=== PATIENT | female | born 1980 | race Caucasian/White ===

== ENCOUNTER 2016-08-11 19:42 | Emergency (ER) | payer BC, OTHER ==
[2016-08-11 19:48] VITALS: BP 155/95; PULSE 96; TEMP 98.5; BMI 25.0
--- NOTE | 2016-08-11 19:50 | PDOC ---
History of Present Illness - General History Source: Patient Exam Limitations: No Limitations - History of Present Illness Initial Comments: 08/11/16 21:31 The patient is a 36-year-old female with a significant past medical history of Hashimotos disease and goiter (not on medications), and presents to the emergency department with blurry vision and head numbness and tingling today. The patient reports that the onset of the numbness and tingling was sudden, is localized to the left side of the head and face, and radiates down the arm. She reports lightheadedness, weakness, and anxiety. She states she has had a headache intermittently for months. She reports a recent tooth infection on the right side accompanied by intermittent pain in the region. She reports she was cleaning earlier today. The patient denies chest pain and shortness of breath. She denies any changes in eating or loss of appetite. The patient denies fever, chills, nausea, vomit, diarrhea and constipation. The patient denies dysuria, frequency, urgency and hematuria. Allergies: seasonal allergies, shellfish Past Surgical History: Breast augmentation Social History: Denies tobacco, ETOH, or drug use. <Joy Barclay - Last Filed: 08/11/16 21:30> <Allyssa Pendleton - Last Filed: 08/12/16 03:54> - General Chief Complaint: Head/Neck problem Stated Complaint: ANXIETY Time Seen by Provider: 08/11/16 19:50 Past History <Joy Barclay - Last Filed: 08/11/16 21:30> - Past Medical History Asthma: No Cancer: No Cardiac Disorders: No Diabetes: No HTN: No Seizures: No Thyroid Disease: No Other medical history: hashimotos - Psycho/Social/Smoking Cessation Hx Suicidal Ideation: No Smoking History: Never smoked Have you smoked in the past 12 months: No Information on smoking cessation initiated: No Hx Alcohol Use: No Drug/Substance Use Hx: No Substance Use Type: None Hx Substance Use Treatment: No <Allyssa Pendleton - Last Filed: 08/12/16 03:54> - Past Medical History Allergies/Adverse Reactions: Allergies Allergy/AdvReac Type Severity Reaction Status Date / Time Shellfish Allergy Unknown Verified 08/11/16 19:46 Home Medications: Ambulatory Orders Norethindrone-E.estradiol-Iron [Microgestin Fe 1-20 Tablet] 1 each PO DAILY tablet 01/06/14 Amoxicillin - [Amoxicillin 500mg Capsule -] 500 mg PO TID #21 capsule 08/11/16 Lorazepam [Ativan] 0.5 mg PO TID #15 tablet MDD 3 08/11/16 Review of Systems - Review of Systems Able to Perform ROS?: Yes Comments:: 08/11/16 21:31 CONSTITUTIONAL: Present: (+) generalized weakness Absent: fever, chills, diaphoresis, malaise, loss of appetite HEENT: Present: (+) blurry vision, (+) tooth pain Absent: rhinorrhea, nasal congestion, throat pain, throat swelling, difficulty swallowing, mouth swelling, ear pain, eye pain CARDIOVASCULAR: Absent: chest pain, syncope, palpitations, irregular heart rate, peripheral edema RESPIRATORY: Absent: cough, shortness of breath, dyspnea with exertion, orthopnea, wheezing, stridor, hemoptysis GASTROINTESTINAL: Absent: abdominal pain, abdominal distension, nausea, vomiting, diarrhea, constipation, melena, hematochezia GENITOURINARY: Absent: dysuria, frequency, urgency, hesitancy, hematuria, flank pain, genital pain MUSCULOSKELETAL: Absent: myalgia, arthralgia, joint swelling SKIN: Absent: rash, itching, pallor HEMATOLOGIC/IMMUNOLOGIC: Absent: easy bleeding, easy bruising, lymphadenopathy, frequent infections ENDOCRINE: Absent: unexplained weight gain, unexplained weight loss, heat intolerance, cold intolerance NEUROLOGIC: Present: (+) paresthesia in the left head, face, and arm, (+) lightheadedness, ( +) headache Absent: unsteady gait, seizure, mental status changes, bladder or bowel incontinence PSYCHIATRIC: Absent: depression, suicidal or homicidal ideation, hallucinations. <Joy Barclay - Last Filed: 08/11/16 21:30> *Physical Exam - Vital Signs Last Vital Signs Temp Pulse Resp BP Pulse Ox 98.5 F 96 H 18 155/95 99 08/11/16 19:47 08/11/16 19:47 08/11/16 19:47 08/11/16 19:47 08/11/16 19:47 - Physical Exam Comments: 08/11/16 21:31 GENERAL: Well developed, well nourished. Awake and alert. No acute distress. (+) Afebrile. HEENT: Normocephalic, atraumatic. PERRLA, EOMI. No conjunctival pallor. Sclera are non- icteric. Moist mucous membranes. Oropharynx is clear. NECK: Supple. Full ROM. No JVD. Carotid pulses 2+ and symmetric, without bruits. No thyromegaly. No lymphadenopathy. CARDIOVASCULAR: Regular rate and rhythm. No murmurs, rubs, or gallops. Distal pulses are 2+ and symmetric. PULMONARY: No evidence of respiratory distress. Lungs clear to auscultation bilaterally. No wheezing, rales or rhonchi. ABDOMINAL: Soft. Non-tender. Non-distended. No rebound or guarding. No organomegaly. Normoactive bowel sounds. MUSCULOSKELETAL Normal range of motion at all joints. No bony deformities or tenderness. No CVA tenderness. EXTREMITIES: No cyanosis. No clubbing. No edema. No calf tenderness. SKIN: Warm and dry. Normal capillary refill. No rashes. No jaundice. NEUROLOGICAL: Alert, awake, appropriate. Cranial nerves 2-12 intact. No deficits to light touch and temperature in face, upper extremities and lower extremities. No motor deficits in the in face, upper extremities and lower extremities. Normoreflexic in the upper and lower extremities. Normal speech. Toes are down- going bilaterally. Gait is normal without ataxia. PSYCHIATRIC: Cooperative. Good eye contact. Appropriate mood and affect. <Joy Barclay - Last Filed: 08/11/16 21:30> - Vital Signs Last Vital Signs Temp Pulse Resp BP Pulse Ox 98.5 F 96 H 18 155/95 99 08/11/16 19:47 08/11/16 19:47 08/11/16 19:47 08/11/16 19:47 08/11/16 19:47 <Allyssa Pendleton - Last Filed: 08/12/16 03:54> ED Treatment Course - LABORATORY CBC & Chemistry Diagram: 08/11/16 20:40 08/11/16 20:40 - ADDITIONAL ORDERS Additional order review: Laboratory Results 08/11/16 08/11/16 08/11/16 20:45 20:40 20:40 Sodium 143 Potassium 4.4 Chloride 110 H Carbon Dioxide 25 Anion Gap 8 BUN 11 D Creatinine 0.8 Creat Clearance w eGFR > 60 Random Glucose 110 H D Calcium 9.3 Total Bilirubin 0.2 AST 17 ALT 17 Alkaline Phosphatase 78 Total Protein 7.0 Albumin 3.9 Serum , Qual Negative Urine Color Colorless Urine Appearance Clear Urine pH 7.0 Ur Specific [place] 1.005 Urine Protein Negative Urine Glucose (UA) Negative Urine Ketones Negative Urine Blood 1+ H Urine Nitrite Negative Urine Bilirubin Negative Urine Urobilinogen Negative Ur Leukocyte Esterase Negative Urine RBC 1 Urine WBC <1 Ur Epithelial Cells Rare Urine Mucus Rare 08/11/16 20:40 RBC 4.31 D MCV 87.1 MCHC 34.0 RDW 12.6 MPV 7.6 Neutrophils % 66.2 Lymphocytes % 24.9 D Monocytes % 7.0 Eosinophils % 1.3 D Basophils % 0.6 - Medications Given in the ED: ED Medications Discontinued Medications Generic Name Dose Route Start Last Admin Trade Name Katie PRN Reason Stop Dose Admin Lorazepam 1 mg 08/11/16 20:11 08/11/16 21:08 Ativan - PO 08/11/16 20:12 1 mg ONCE ONE Administration <Joy Barclay - Last Filed: 08/11/16 21:30> - LABORATORY CBC & Chemistry Diagram: 08/11/16 20:40 08/11/16 20:40 <Allyssa Pendleton - Last Filed: 08/12/16 03:54> Medical Decision Making - Medical Decision Making 08/11/16 22:00 Patient Name: Isabel Goncalves THIS IS A PRELIMINARY REPORT FROM [facility] EXAM: CT head without contrast IMAGES: 70 DATE OF SERVICE: 2016-08-11 21:16:26.0 HISTORY:Right tooth infection last week. Left hand tingling and numbness.COMPARISON: None. FINDINGS: 1. There is no evidence of an acute intracranial process, intracranial hemorrhage or mass effect. 2. The ventricles are normal size. 3. The visualized portions of the orbits, paranasal and mastoid sinuses are unremarkable. If there is a persistent clinical concern of an acute intracranial process as the etiology of the patient's symptoms, MRI of the brain may be helpful. 08/12/16 03:51 Pt comes with numbness on the right side of her body. She is worried because she had an infected tooth for 2 weeks and she finished her antibiotics last week and she is scheduled to get the tooth removed on Saturday (in 2 days) and she fears that she has extension of her infection into her brain, etc. Pt is anxious. SHe has no fevers. Her exam is normal, but she describes [id number] and numbness on the right side. CT head is normal; vitals are normal, and patient is improved once he is reassured. She will be given abx for her tooth exctraction as well as 5 day supply of ativan. <Allyssa Pendleton - Last Filed: 08/12/16 03:54> *DC/Admit/Observation/Transfer - Attestations Scribe Attestion: 08/11/16 21:31 Documentation prepared by Joy Barclay, acting as biomedical manager for Allyssa Pendleton MD. <Joy Barclay - Last Filed: 08/11/16 21:30> - Discharge Dispostion Admit: No <Allyssa Pendleton - Last Filed: 08/12/16 03:54> Diagnosis at time of Disposition: Paresthesia - Discharge Dispostion Disposition: HOME Condition at time of disposition: Stable - Prescriptions Prescriptions: Amoxicillin - [Amoxicillin 500mg Capsule -] 500 mg PO TID #21 capsule Lorazepam [Ativan] 0.5 mg PO TID #15 tablet MDD 3 - Patient Instructions Printed Discharge Instructions: DI for Numbness/tingling Additional Instructions: Follow up with your doctor. Return to Emergency Department for worsening symptoms or any other concerns.
[2016-08-11] MEDS ORDERED: LORazepam 1 MG TABLET PO ONE (20:11)
[2016-08-11 20:53] LABS: BASOPHIL 0.6 % (0-2.0); EOSINOPHIL 1.3 % (0-4.5); MCH 29.6 pg (25.7-33.7); MEAN CELL VOLUME 87.1 fl (80-96); MEAN PLT VOLUME 7.6 fl (7.5-11.1); NEUTROPHILS 66.2 % (42.8-82.8); PLATELET COUNT 284 K/MM3 (134-434); RDW 12.6 % (11.6-15.6); WHITE BLOOD COUNT 9.1 K/mm3 (4.0-10.0)
[2016-08-11 21:01] LABS: URINE APPEARANCE CLEAR; URINE BILIRUBIN NEGATIVE (NEGATIVE); URINE COLOR COLORLESS; URINE GLUCOSE (UA) NEGATIVE (NEGATIVE); URINE KETONE NEGATIVE (NEGATIVE); URINE LEUK ESTERASE NEGATIVE (NEGATIVE); URINE NITRITE NEGATIVE (NEGATIVE); URINE PROTEIN NEGATIVE (NEGATIVE); URINE UROBILINOGEN NEGATIVE E.U./dl (0.2-1.0)
[2016-08-11] MEDS ORDERED: LORazepam 0.5 MG TABLET ONE (21:06)
[2016-08-11 21:07] LABS: URINE BLOOD 1+ (NEGATIVE)
[2016-08-11 21:12] LABS: URINE MUCUS RARE; URINE RBC 1 /hpf (0-3); URINE WBC <1 /hpf (3-5)
[2016-08-11 21:20] LABS: ALBUMIN 3.9 g/dl (3.4-5.0); ANION GAP 8 (8-16); CALCIUM 9.3 mg/dL (8.5-10.1); CO2 25 mmol/L (21-32); CREATININE 0.8 mg/dL (0.55-1.02); GLUCOSE,RANDOM 110 mg/dL (74-106); SGOT/AST 17 U/L (15-37); SGPT/ALT 17 U/L (12-78)
[2016-08-11 21:22] LABS: ALK PHOS 78 U/L (45-117); BILIRUBIN,TOTAL 0.2 mg/dL (0.2-1.0)
[2016-08-11] MEDS ORDERED: AMOXICILLIN 500 MG CAPSULE (FP) ONE (22:08)
[2016-08-11] MEDS ORDERED: AMOXICILLIN 500 MG CAPSULE (FP) PO ONE (22:12)
== END 2016-08-11 22:05 | disposition home or self-care (01) ==
LOC: JER 19:42
DX: R20.2 Paresthesia of skin (principal); F41.9 Anxiety disorder, unspecified
CPT/HCPCS: 36415; 70450-TC; 80053; 81003; 81015; 84443; 84703; 85025; 99281-25